=== PATIENT | male | born 1970 | race Caucasian/White ===

== ENCOUNTER 2019-04-01 15:03 | Emergency (ER) | payer BC, OTHER ==
[~2019-04-01] VITALS: Ht 170.2 cm; Wt 96.2 kg
[~2019-04-01 15:03] MED LIST: AMLO5TAB10 PO; ASPI-482 PO
[2019-04-01 15:11] VITALS: BP 140/90
--- NOTE | 2019-04-01 15:56 | PHYS DOC ---
Past Medical History Past Medical History: DVT, Hypertension Additional Past Medical Histor: PTSD Past Surgical History: Appendectomy Additional Past Surgical Histo: eye surgery Alcohol Use: None Drug Use: None Adult General Chief Complaint Chief Complaint: LOWER EXT PAIN HPI HPI Patient is a 48 year old male who presents with right lower extremity pain. Patient had history of recurrent DVT and was started on Xarelto about one month ago after having several clots in right lower extremity. Patient complaining of pain in right upper thigh and right leg for couple days and was concern for having another blood clots. Patient denies shortness of breath, chest pain, new immobilization, fever and chills, focal neuro deficit. Patient rated his pain for 1- 2 with rest and 3-4 with activity. Review of Systems Review of Systems Constitutional: Denies fever or chills [] Eyes: Denies change in visual acuity, redness, or eye pain [] HENT: Denies nasal congestion or sore throat [] Respiratory: Denies cough or shortness of breath [] Cardiovascular: No additional information not addressed in HPI [] GI: Denies abdominal pain, nausea, vomiting, bloody stools or diarrhea [] : Denies dysuria or hematuria [] Musculoskeletal: Denies back pain or joint pain [] Integument: Denies rash or skin lesions [] Neurologic: Denies headache, focal weakness or sensory changes [] Endocrine: Denies polyuria or polydipsia [] All other systems were reviewed and found to be within normal limits, except as documented in this note. Allergies Allergies Allergies Coded Allergies Type Severity Reaction Last Updated Verified No Known Drug Allergies 10/01/14 No Physical Exam Physical Exam Constitutional: Well developed, well nourished, no acute distress, non-toxic appearance. [] HENT: Normocephalic, atraumatic Eyes: PERRLA, EOMI, conjunctiva normal, no discharge. [] Neck: Normal range of motion, no tenderness, supple, no stridor. [] Cardiovascular:Heart rate regular rhythm, no murmur [] Lungs & Thorax: Bilateral breath sounds clear to auscultation [] Skin: Warm, dry, no erythema, no rash. [] Back: No tenderness, no CVA tenderness. [] Extremities: Right lower extremity without edema or arterial deficiency sign or tenderness, no cyanosis, no clubbing, ROM intact, no edema. [] Neurologic: Alert and oriented X 3, normal motor function, normal sensory function, no focal deficits noted. [] Psychologic: Affect normal, judgement normal, mood normal. [] Current Patient Data Vital Signs Vital Signs Date Time Temp Pulse Resp B/P (MAP) Pulse Ox O2 Delivery O2 Flow Rate FiO2 04/01/19 15:11 98.2 16 140/90 (107) 96 98.2 EKG EKG [] Radiology/Procedures Radiology/Procedures [facility] [address] [place] [address] IMAGING REPORT Signed PATIENT: ELAINE RENE ACCOUNT: [id number] : 1970 LOCATION: ER AGE: 48 SEX: M EXAM STATUS: REG ER ORD. PHYSICIAN: JESUS GA MD REASON: right lower extremity pain, history of DVT, on Xarelto PROCEDURE: VENOUS LOWER EXTREMITY RIGHT Right lower extremity venous duplex study 04/01/2019 Clinical History: Right leg pain. Technique: Using a combination of real time ultrasound imaging and color-flow and pulse Doppler imaging techniques along with graded compression and augmentation, duplex evaluation of the deep venous system of the right lower extremity was performed. Multiple images were obtained. Findings: There is no sonographic evidence of deep venous thrombosis involving the visualized deep venous structures of the right lower extremity. Impression: Negative study. Electronically signed by: Mil Knox MD (04/01/2019 5:00 PM) [facility] DICTATED and SIGNED BY: MIL KNOX MD DATE: 04/01/19 1700 Course & Med Decision Making Course & Med Decision Making Pertinent Imaging studies reviewed. (See chart for details) Evaluation of patient in ER showed 48-year-old male patient with history of right lower extremity DVT and currently on Xarelto complaining of pain in his neck and concern for another DVT. Patient had unremarkable physical exam and venous ultrasound. Patient was informed about test result and needs for follow- up with his primary care physician. Patient didn't want to have pain medication in ER. Dragon Disclaimer Dragon Disclaimer This electronic medical record was generated, in whole or in part, using a voice recognition dictation system. Departure Departure Impression: Primary Impression: Lower extremity pain, right Additional Impression: History of DVT (deep vein thrombosis) Disposition: HOME, SELF-CARE (at 1708) Condition: IMPROVED Referrals: LACY KONG (PCP) Patient Instructions: Muscle Strain Additional Instructions: Drink plenty of liquids Follow-up with your primary care physician in 3-5 days Return to ER if not getting better Continuing current medication Scripts Cyclobenzaprine Hcl (CYCLOBENZAPRINE HCL) 10 Mg Tablet 1 TAB PO TID, #21 TAB Prov: JESUS GA MD 04/01/19 Problem Qualifiers JESUS GA MD April 01, 2019 15:56
--- NOTE | 2019-04-01 17:03 | RAD ---
Right lower extremity venous duplex study 04/01/2019 Clinical History: Right leg pain. Technique: Using a combination of real time ultrasound imaging and color-flow and pulse Doppler imaging techniques along with graded compression and augmentation, duplex evaluation of the deep venous system of the right lower extremity was performed. Multiple images were obtained. Findings: There is no sonographic evidence of deep venous thrombosis involving the visualized deep venous structures of the right lower extremity. Impression: Negative study. Electronically signed by: Mil Knox MD (04/01/2019 5:00 PM) [facility]
[2019-04-01] MEDS ORDERED: CYCL10TA2 PO (17:10)
== END 2019-04-01 17:32 | disposition home or self-care (01) ==
LOC: ER 15:03
DX: M79.604 Pain in right leg (principal); I10 Essential (primary) hypertension; Z90.89 Acquired absence of other organs; Z86.718 Personal history of other venous thrombosis and embolism
CPT/HCPCS: 93971; 99284

== ENCOUNTER → 2019-09-20 | Outpatient (CLI) | payer OTHER, BC ==
[~2019-09-20] MED LIST changes: +CYCL10TA2 PO
--- NOTE | 2019-09-20 16:30 | KCIC ---
MR of the left knee HISTORY: Left knee pain anteromedially after a fall 2 months ago. TECHNIQUE: Routine multiplanar sequences are obtained. FINDINGS: No evidence of medial meniscal tear. No evidence of lateral meniscal tear. Anterior and posterior cruciate ligaments are intact. Medial collateral ligament is intact. Iliotibial band unremarkable. Fibular collateral ligament, biceps femoris tendon and popliteus tendon are intact. Extensor mechanism is intact. Small joint effusion. Focal full-thickness chondral defect at the median ridge of the patella measuring about 3 mm, with subjacent cystic-type degeneration and edema. Medial and lateral compartment articular cartilage is intact. No acute fracture. No aggressive bone destruction. No significant Bethea's cyst. IMPRESSION: 1. No evidence of meniscal tear or internal derangement. 2. 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 Electronically signed by: Price Hernandez MD (09/20/2019 4:27 PM) [facility]
== END | disposition home or self-care (01) ==
LOC: KCIC MRI 13:28
PROVIDERS: ATTEND Family Medicine
DX: S89.92XA Unspecified injury of left lower leg, initial encounter (principal); M25.462 Effusion, left knee; W19.XXXA Unspecified fall, initial encounter; Y93.89 Activity, other specified; Y92.89 Other specified places as the place of occurrence of the external cause; Y99.8 Other external cause status
CPT/HCPCS: 73721